=== PATIENT | male | born 1950 | race Two or more races ===

== ENCOUNTER 2023-04-16 17:58 | Emergency (ER) | payer OTHER ==
[~2023-04-16] VITALS: Ht 172.7 cm; Wt 60.0 kg
[2023-04-16 18:07] VITALS: O2SAT 97
[2023-04-16 18:57] LABS: BASOPHILS % 0.3 % (0.0-2.0); EOSINOPHILS % 0.6 % (0.0-5.0); HEMATOCRIT. 30.2 % (42.0-52.0); HEMOGLOBIN. 10.3 g/dL (14.0-18.0); LYMPHOCYTES % 47.3 % (20.0-50.0); MEAN CORPUSCULAR HEMOGLOBIN 34.9 pg (28.0-32.0); MEAN CORPUSCULAR VOLUME 102.8 fL (80.0-94.0); MEAN PLATELET VOLUME 7.4 fl (7.4-10.4); MONOCYTES % 9.6 % (2.0-8.0); NEUTROPHILS % 42.2 % (40.0-76.0); PLATELET 252 x1000/uL (130-400); RED BLOOD CELL COUNT 2.94 mill/uL (4.7-6.1); RED CELL DISTRIBUTION WIDTH 18.5 % (11.6-14.6)
[2023-04-16 19:10] LABS: CHLORIDE 108 mEq/L (98-107); INR 1.1; PROTHROMBIN TIME 12.1 sec (9.6-11.0)
[2023-04-16 19:17] LABS: ETHANOL BLOOD < 10 mg/dL (-10)
[2023-04-16 19:42] VITALS: TEMP 99.1
[2023-04-16] MEDS ORDERED: ASPIRIN 325MG TABLET PO ONE (20:30)
[2023-04-16] MEDS ORDERED: IOHEXOL-350 100 ML BOTTLE ONE (21:30)
[2023-04-17] VITALS: BP 112/64; PULSE 65; RESP 16
== END 2023-04-17 00:20 | disposition short-term general hospital (02) ==
LOC: ER 17:58 → CANBEDREQ 04-17 19:51
DX: R29.810 Facial weakness (principal); R47.81 Slurred speech; Z20.822 Contact with and (suspected) exposure to COVID-19
CPT/HCPCS: 36415; 70450; 70496; 70498; 71045; 80053; 80320; 82962; 84484; 85025; 85610; 87426; 93005; 99285; C9803; Q9967; G0480